=== PATIENT | male | born 1975 | race Two or more races ===

== ENCOUNTER 2018-04-13 14:29 | Emergency (ER) | payer OTHER ==
[~2018-04-13] VITALS: Ht 188 cm; Wt 104.3 kg
[2018-04-13 14:38] VITALS: Ht 188 cm; Wt 104.3 kg
[2018-04-13 15:46] VITALS: BP 148/94
== END 2018-04-13 15:42 | disposition home or self-care (01) ==
LOC: ED 14:29
DX: S49.81XA Other specified injuries of right shoulder and upper arm, initial encounter (principal); I10 Essential (primary) hypertension; E78.00 Pure hypercholesterolemia, unspecified; K21.9 Gastro-esophageal reflux disease without esophagitis; X58.XXXA Exposure to other specified factors, initial encounter; Y93.89 Activity, other specified; Y92.89 Other specified places as the place of occurrence of the external cause; Y99.8 Other external cause status
CPT/HCPCS: 99406